=== PATIENT | male | born 1985 | race African-American/Black ===

== ENCOUNTER 2017-04-22 13:56 | Emergency (ER) | payer SELFPAY ==
[~2017-04-22] VITALS: Ht 175.3 cm; Wt 68.0 kg
[2017-04-22 14:00] VITALS: BP 128/89
[2017-04-22] MEDS: Ipratropium 0.02% Inh Soln 2.5ml UD HHN SCH ×3 (14:14→14:48)
[2017-04-22] MEDS: Albuterol ud Inhalation HHN SCH ×3 (14:14→14:47)
[2017-04-22] MEDS ORDERED: PredniSONE 20mg tab ORAL ONE (14:15)
[2017-04-22 14:52] VITALS: BP 124/75
[2017-04-22 15:50] VITALS: BP 124/80
[2017-04-22] MEDS ORDERED: PREDNISONE20 MG ORAL (15:50)
[2017-04-22] MEDS ORDERED: ALBUTEROL SULF8.5 GM INH (15:50)
--- NOTE | 2017-04-23 16:01 | Emergency Room Report ---
History of Present Illness General Chief Complaint: Dyspnea/Respdistress Source: Patient, EMS Present Illness HPI 31-year-old male presents ED for evaluation. Per EMS patient is complaining of shortness of breath. Has history of asthma. Could not find his inhaler. Symptoms started last night. Patient was started on nebulizer treatments by EMS. States slightly improved however still profusely wheezing. Patient denies any chest pain. Denies any fevers chills. No other aggravating relieving factors. Denies any other associated symptoms Allergies: Coded Allergies: No Known Allergies (Unverified , 04/22/17) Patient History Past Medical History: asthma Past Surgical History: none Pertinent Family History: none Social History: Denies: alcohol use, drug use, smoking Immunizations: UTD Reviewed Nursing Documentation: PMH: Agreed, PSxH: Agreed Nursing Documentation-PMH Past Medical History: No History, Except For Hx Asthma: Yes Review of Systems All Other Systems: negative except mentioned in HPI Physical Exam Vital Signs Date Time Temp Pulse Resp B/P Pulse Ox O2 Delivery O2 Flow Rate FiO2 04/22/17 13:48 98.1 98 22 121/79 98 10.0 04/22/17 14:00 Room Air 04/22/17 14:12 21 Sp02 EP Interpretation: reviewed, normal General Appearance: no apparent distress, alert, GCS 15, non-toxic Head: normocephalic, atraumatic Eyes: bilateral eye PERRL, bilateral eye normal inspection ENT: hearing grossly normal, normal pharynx, no angioedema, normal voice Neck: full range of motion, supple/symm/no masses Respiratory: chest non-tender, normal breath sounds, speaking full sentences, wheezing Cardiovascular #1: regular rate, rhythm, no edema Cardiovascular #2: 2+ carotid (R), 2+ carotid (L), 2+ radial (R), 2+ radial (L) , 2+ dorsalis pedis (R), 2+ dorsalis pedis (L) Gastrointestinal: normal bowel sounds, non tender, soft, non-distended, no guarding, no rebound Rectal: deferred Genitourinary: normal inspection, no CVA tenderness Musculoskeletal: back normal, gait/station normal, normal range of motion, non- tender Neurologic: alert, oriented x3, responsive, motor strength/tone normal, sensory intact, speech normal Psychiatric: judgement/insight normal, memory normal, mood/affect normal, no suicidal/homicidal ideation Reflexes: 3+ bicep (R), 3+ bicep (L), 3+ tricep (R), 3+ tricep (L), 3+ knee (R) , 3+ knee (L) Skin: normal color, no rash, warm/dry, well hydrated Lymphatic: no adenopathy Medical Decision Making Diagnostic Impression: Primary Impression: Asthma exacerbation ER Course Hospital Course 31-year-old male presents to ED complaining of SOB, wheezing Differential diagnoses include: URI, bronchitis, asthma/COPD, pneumonia Clinical course Patient placed on stretcher. After initial history, physical exam reveals an male in no acute distress. Bilateral TM unremarkable. No pharyngeal erythema. No tonsillar exudates. No lymphadenopathy. Mild wheezing noted on exam, no signs of respiratory distress or retractions. Patient given Prednisone and albuterol/atrovent treatment x 3 in ED with symptoms improved. Reassurance given Diagnosis - asthma exacerbation Stable and discharged home with prescriptions for prednisone, albuterol. Instructed to followup with PMD. Return to ED if symptoms recur or worsen Last Vital Signs Date Time Temp Pulse Resp B/P Pulse Ox O2 Delivery O2 Flow Rate FiO2 04/22/17 15:50 98.0 89 12 124/80 100 Room Air 10.0 21 Status: improved Disposition: HOME, SELF-CARE Condition: Stable Scripts Prednisone* (PREDNISONE*) 20 Mg Tablet 40 MG ORAL DAILY for 10 Days, TAB Prov: RIKI PAULINO M.D. 04/22/17 Albuterol Sulfate* (ALBUTEROL SULFATE MDI*) 8.5 Gm Hfa.aer.ad 2 PUFF INH Q4H Y for cough/wheezing, #1 EA 0 Refills Prov: RIKI PAULINO M.D. 04/22/17 Patient Instructions: Asthma, Adult, [id number] RIKI PAULINO M.D. Apr 23, 2017 16:01
== END 2017-04-22 15:55 | disposition home or self-care (01) ==
LOC: EDBD 13:56 → EMR 14:16
DX: J45.901 Unspecified asthma with (acute) exacerbation (principal)
CPT/HCPCS: 94640; 94664; 99284